=== PATIENT | female | born 1955 | race Caucasian/White ===

== ENCOUNTER 2025-04-28 04:22 | Emergency (ER) | payer MEDICARE, BC ==
[~2025-04-28] VITALS: Ht 1676.4 cm; Wt 68.0 kg
[2025-04-28 04:22] VITALS: BP 128/75
[2025-04-28] MEDS ORDERED: FAMO20TA8 PO (04:43)
[2025-04-28] MEDS ORDERED: ROSU5TAB PO (04:43)
[2025-04-28] MEDS ORDERED: PREG100C PO (04:43)
[2025-04-28] MEDS ORDERED: AMIT10TA6 PO (04:43)
[2025-04-28 05:05] LABS: PLATELET COUNT (AUTO) 214 K/uL (179-408); RED BLOOD CELL COUNT(AUTO) 4.24 MIL/uL (3.63-4.92); RED CELL DISTRIBUTION WIDTH 14.6 % (12.3-17.7); WHITE BLOOD COUNT (AUTO) 5.8 K/uL (3.8-11.8)
[2025-04-28 05:12] LABS: CREATININE 0.8 mg/dL (0.6-1.3); SODIUM SERUM 139.0 mmol/L (136-145); UREA NITROGEN, BLOOD 17.0 mg/dL (7-18)
[2025-04-28 05:18] LABS: ASPARTATE AMINOTRANSFERASE 23.0 U/L (15-37); TOTAL PROTEIN, SERUM 7.5 g/dL (6.4-8.2)
[2025-04-28 05:26] LABS: *BILIRUBIN,URIN NEGATIVE (NEGATIVE); *BLOOD, URINE NEGATIVE (NEGATIVE); *COLOR,URINE YELLOW (YELLOW); *KETONES,URINE NEGATIVE (NEGATIVE); *PROTEIN,URINE NEGATIVE (NEGATIVE); *UROBILINOGEN,URINE 0.2 E.U./dl (NORMAL); LEUKOCYTE ESTERASE ,URINE NEGATIVE (NEGATIVE); NITRITE, URINE NEGATIVE (NEGATIVE); UGLUCOSE NEGATIVE (NEGATIVE)
[2025-04-28 05:28] LABS: *CLARITY,URINE HAZY (CLEAR)
[2025-04-28 05:41] LABS: SQUAMOUS EPITHELIAL CELL,UR FEW /HPF (NONE SEEN)
[2025-04-28] MEDS ORDERED: METOCLOPRAMIDE HCL 10 MG/2 ML VIAL ONE (05:46)
[2025-04-28] MEDS ORDERED: PANTOPRAZOLE SODIUM 40 MG VIAL ONE (05:46)
[2025-04-28] MEDS ORDERED: MORPHINE SULFATE 4 MG/1 ML DISP.SYRIN ONE (05:46)
[2025-04-28] MEDS: METOCLOPRAMIDE HCL 10 MG/2 ML VIAL IV ONE (06:00)
[2025-04-28] MEDS: IV NORMAL SALINE 1000 ML BAG IV ONE (06:00)
[2025-04-28] MEDS: MORPHINE SULFATE 4 MG/1 ML DISP.SYRIN IV ONE (06:00)
[2025-04-28] MEDS: PANTOPRAZOLE SODIUM IV 40 MG in IV DEXTROSE 5% 100 ML IV ONE (06:00)
[2025-04-28] MEDS ORDERED: RABE20TA32 PO (06:25)
[2025-04-28] MEDS ORDERED: METO-295 PO (06:25)
[2025-04-28] MEDS ORDERED: HYDR-3972 PO (06:25)
[2025-04-28] MEDS ORDERED: MAGNESIUM HYDROXIDE 30 ML LIQUID UDC ONE (07:44)
[2025-04-28] MEDS ORDERED: MINERAL OIL FLEET ENEMA 133 ML BOTTLE RC ONE (07:44)
[2025-04-28] MEDS: MINERAL OIL FLEET ENEMA 133 ML BOTTLE RC ONE (08:00)
[2025-04-28] MEDS: MAGNESIUM HYDROXIDE 30 ML LIQUID UDC PO ONE (08:00)
[2025-04-28] MEDS ORDERED: BISA-79 PO (08:51)
[2025-04-28] MEDS ORDERED: BISA10SU61 RC (08:51)
[2025-04-28 09:17] VITALS: BP 128/75; O2SAT 99
== END 2025-04-28 09:15 | disposition home or self-care (01) ==
LOC: ER 04:48
DX: K27.9 Peptic ulcer, site unspecified, unspecified as acute or chronic, without hemorrhage or perforation (principal); K29.00 Acute gastritis without bleeding; E78.5 Hyperlipidemia, unspecified; K21.9 Gastro-esophageal reflux disease without esophagitis; Z79.899 Other long term (current) drug therapy; Z87.11 Personal history of peptic ulcer disease; Z91.041 Radiographic dye allergy status; Z86.79 Personal history of other diseases of the circulatory system
CPT/HCPCS: 99285; 74176; 96365; 96366; 96375; 80076; 80048; 81001; 83690; 85025; 87086; 36415; 93005; J2765; J2470 ×2; J2270; J7040; A4606; A4663